=== PATIENT | male | born 1945 | race Caucasian/White ===

== ENCOUNTER → 2016-08-19 | Outpatient (CLI) | payer MEDICARE, BC ==
[2013-12-03 09:53] VITALS: BP 141/96
[~2016-08-19] MED LIST: AMOXICILLIN 8751 TAB PO; CARDI-OMEGA1000 MG PO; GOOD SENSE ASPI81 M1 PO; OMEGA-3 300 MG-1 SGL PO; PRINIVIL20 MG PO
== END ==
LOC: LAB 06:14
DX: E78.00 Pure hypercholesterolemia, unspecified (principal); I10 Essential (primary) hypertension

== ENCOUNTER → 2017-09-25 | Outpatient (CLI) | payer MEDICARE, BC ==
[2013-12-03 09:53] VITALS: BP 141/96
[2017-09-25 10:20] LABS: BUN/CREATININE RATIO 25.6 (6.0-26.0); CALCIUM 9.7 mg/dL (8.4-10.2); POTASSIUM 4.5 mmol/L (3.6-5.0); TOTAL BILIRUBIN 0.6 mg/dL (0.2-1.3); TOTAL PROTEIN 7.3 g/dL (6.3-8.2)
== END ==
LOC: LAB 07:06
PROVIDERS: Family Medicine
DX: Z00.00 Encounter for general adult medical examination without abnormal findings (principal); Z12.12 Encounter for screening for malignant neoplasm of rectum; E78.00 Pure hypercholesterolemia, unspecified; Z12.5 Encounter for screening for malignant neoplasm of prostate; I10 Essential (primary) hypertension

== ENCOUNTER → 2019-01-04 | Outpatient (CLI) | payer MEDICARE, BC ==
[2013-12-03 09:53] VITALS: BP 141/96
[2019-01-04 07:27] LABS: ALBUMIN 3.9 g/dL (3.4-4.8); POTASSIUM 4.5 mmol/L (3.5-5.1)
[2019-01-04 07:28] LABS: CALCIUM 9.6 mg/dL (8.3-10.5)
[2019-01-04 07:29] LABS: TOTAL PROTEIN 7.3 g/dL (6.2-8.1)
[2019-01-04 07:31] LABS: TOTAL BILIRUBIN 0.4 mg/dL (0.2-1.2)
== END ==
LOC: LAB 07:00
PROVIDERS: Family Medicine
DX: Z00.00 Encounter for general adult medical examination without abnormal findings (principal); Z12.5 Encounter for screening for malignant neoplasm of prostate; Z12.12 Encounter for screening for malignant neoplasm of rectum; I10 Essential (primary) hypertension; E78.00 Pure hypercholesterolemia, unspecified

== ENCOUNTER → 2019-03-14 | Outpatient (CLI) | payer MEDICARE, BC ==
[2013-12-03 09:53] VITALS: BP 141/96
== END ==
LOC: LAB 10:22
DX: Z12.11 Encounter for screening for malignant neoplasm of colon (principal)

== ENCOUNTER → 2020-01-22 | Outpatient (CLI) | payer MEDICARE, BC ==
[2013-12-03 09:53] VITALS: BP 141/96
[2020-01-22 07:54] LABS: ALBUMIN 4.2 g/dL (3.4-4.8); POTASSIUM 4.6 mmol/L (3.5-5.1)
[2020-01-22 07:55] LABS: CALCIUM 9.4 mg/dL (8.3-10.5)
[2020-01-22 07:56] LABS: TOTAL PROTEIN 7.6 g/dL (6.2-8.1)
[2020-01-22 07:58] LABS: TOTAL BILIRUBIN 0.6 mg/dL (0.2-1.2)
== END ==
LOC: LAB 07:26
PROVIDERS: Family Medicine
DX: Z00.00 Encounter for general adult medical examination without abnormal findings (principal); Z12.12 Encounter for screening for malignant neoplasm of rectum; E78.00 Pure hypercholesterolemia, unspecified; I10 Essential (primary) hypertension

== ENCOUNTER → 2020-01-28 | Outpatient (CLI) | payer MEDICARE, BC ==
[2013-12-03 09:53] VITALS: BP 141/96
== END ==
LOC: LAB 12:31
DX: Z12.11 Encounter for screening for malignant neoplasm of colon (principal)

== ENCOUNTER → 2020-08-05 | Outpatient (CLI) | payer MEDICARE, BC ==
[2013-12-03 09:53] VITALS: BP 141/96
== END ==
LOC: LAB 16:03
DX: U07.1 COVID-19 (principal)

== ENCOUNTER → 2022-05-05 | Outpatient (CLI) | payer MEDICARE, BC ==
[2022-05-05 15:48] LABS: POTASSIUM 4.3 mmol/L (3.5-5.1)
[2022-05-05 15:49] LABS: CALCIUM 9.5 mg/dL (8.3-10.5)
[2022-05-05 15:51] LABS: TOTAL PROTEIN 7.2 g/dL (6.2-8.1)
[2022-05-05 15:52] LABS: TOTAL BILIRUBIN 0.3 mg/dL (0.2-1.2)
== END ==
LOC: LAB 15:28
PROVIDERS: Family Medicine
DX: Z00.00 Encounter for general adult medical examination without abnormal findings (principal); Z12.11 Encounter for screening for malignant neoplasm of colon; I10 Essential (primary) hypertension; K21.9 Gastro-esophageal reflux disease without esophagitis

== ENCOUNTER → 2022-05-10 | Outpatient (CLI) | payer MEDICARE, BC | LOC: LAB 09:38 | DX: Z00.00 Encounter for general adult medical examination without abnormal findings (principal); Z12.11 Encounter for screening for malignant neoplasm of colon; I10 Essential (primary) hypertension; K21.9 Gastro-esophageal reflux disease without esophagitis ==

== ENCOUNTER → 2023-04-14 | Outpatient (CLI) | payer MEDICARE, BC | LOC: RAD 16:26 | DX: M19.011 Primary osteoarthritis, right shoulder (principal); M75.101 Unspecified rotator cuff tear or rupture of right shoulder, not specified as traumatic; S43.401A Unspecified sprain of right shoulder joint, initial encounter ==